=== PATIENT | male | born 1975 | race Caucasian/White ===

== ENCOUNTER → 2018-03-09 | Outpatient (CLI) | payer OTHER | LOC: FIMAGING 10:44 | PROVIDERS: ATTEND Internal Medicine | DX: S69.92XA Unspecified injury of left wrist, hand and finger(s), initial encounter (principal) ==

== ENCOUNTER → 2018-11-15 | Outpatient (CLI) | payer OTHER | LOC: FIMAGING 11:06 | PROVIDERS: ATTEND Internal Medicine | DX: N44.2 Benign cyst of testis (principal) ==